=== PATIENT | male | born 1950 | race Caucasian/White ===

== ENCOUNTER → 2019-12-08 | Outpatient (CLI) | payer OTHER | LOC: HYPER 09:37 | DX: L97.812 Non-pressure chronic ulcer of other part of right lower leg with fat layer exposed (principal); S80.11XA Contusion of right lower leg, initial encounter; L84 Corns and callosities; I87.2 Venous insufficiency (chronic) (peripheral); I48.20 Chronic atrial fibrillation, unspecified; I10 Essential (primary) hypertension; R60.0 Localized edema; G89.29 Other chronic pain; J44.9 Chronic obstructive pulmonary disease, unspecified; K21.9 Gastro-esophageal reflux disease without esophagitis; Q85.00 Neurofibromatosis, unspecified; F32.9 Major depressive disorder, single episode, unspecified; F41.9 Anxiety disorder, unspecified; F10.10 Alcohol abuse, uncomplicated; Z79.01 Long term (current) use of anticoagulants; Z87.891 Personal history of nicotine dependence; Z93.3 Colostomy status; Z86.711 Personal history of pulmonary embolism; X58.XXXA Exposure to other specified factors, initial encounter; Y93.89 Activity, other specified; Y92.89 Other specified places as the place of occurrence of the external cause; Y99.8 Other external cause status ==

== ENCOUNTER 2019-12-15 14:06 | Inpatient (IN) | payer OTHER ==
[~2019-12-15] VITALS: Ht 182.9 cm; Wt 74.3 kg
[2019-12-15 14:18] VITALS: BP 134/76
[2019-12-15] MEDS ORDERED: TRAMADOL 50 MG50 MG PO (14:37)
[2019-12-15] MEDS ORDERED: DOXYCYCLINE HY100 M3 PO (14:37)
[2019-12-15] MEDS ORDERED: WARFARIN SODIUM5 MG PO (14:37)
[2019-12-15] MEDS ORDERED: SSD CREAM 1% 5050 GM TOP (14:37)
[2019-12-15] MEDS ORDERED: NEURONTIN 300300 M1 PO (14:37)
[2019-12-15] MEDS ORDERED: DILT-XR240 M1 PO (14:37)
[2019-12-15] MEDS ORDERED: PANTOPRAZOLE SO40 M1 PO (14:37)
[2019-12-15] MEDS ORDERED: WARFARIN SODIU2.5 MG PO (14:38)
[2019-12-15 14:44] LABS: HEMATOCRIT 27.3 % (42.0-52.0); MCH 30.8 pg (26.0-34.0); MCHC 32.8 g/dL (28.0-37.0); MCV 93.9 fL (80.0-100.0); PLATELET COUNT 427 thou/uL (150-400); RBC 2.91 mil/uL (4.50-6.00); RDW 15.2 % (10.5-14.5); WBC 9.7 thou/uL (4.0-11.0)
[2019-12-15 14:47] LABS: CALCIUM 9.3 mg/dL (8.5-10.1); CREATININE 1.1 mg/dL (0.7-1.3); POTASSIUM 4.1 mmol/L (3.5-5.1)
[2019-12-15 14:53] LABS: ALBUMIN 3.4 g/dL (3.4-5.0); TOTAL PROTEIN 7.5 g/dL (6.4-8.2)
[2019-12-15 15:13] LABS: ABSOLUTE NEUTROPHILS 7.3 thou/uL (1.4-8.2)
[2019-12-15 16:07] VITALS: BP 143/76
[2019-12-15 16:18] LABS: INR 3.9; PROTIME 39.8 Seconds (9.3-11.4)
[2019-12-15 16:19] LABS: % SATURATION 12 % (20-39); IRON 39 ug/dL (65-175); TIBC 326 ug/dL (250-450)
[2019-12-15 16:28] VITALS: BP 137/74
[2019-12-15 16:46] LABS: FOLIC ACID 7.6 ng/mL (8.6-58.9); TSH 4.411 uIU/mL (0.358-3.740)
[2019-12-15 19:57] VITALS: BP 119/59
[2019-12-16] VITALS (7 sets, daily range): BP systolic 18–133; BP diastolic 68–95
[2019-12-16 01:04] LABS: URINE BILIRUBIN NEGATIVE (Negative); URINE BLOOD NEGATIVE (Negative); URINE CLARITY CLEAR; URINE COLOR YELLOW; URINE GLUCOSE-RANDOM* NEGATIVE (Negative); URINE KETONES NEGATIVE (Negative); URINE LEUKOCYTES-REFLEX TRACE (Negative); URINE NITRITE-REFLEX NEGATIVE (Negative); URINE PROTEIN (DIPSTICK) NEGATIVE (Negative); URINE SPECIFIC GRAVITY >= 1.030 (1.005-1.035)
--- NOTE | 2019-12-16 04:48 | NUR ---
ASSUMED PT CARE AT 1900. PT IS ALERT AND ORIENTED WITH NO SIGN OF DISTRESS NOTED. CIWA PROTOCOL IN PLACE. PT IS STABLE WITH NO SIGN OF WITHDRWAL NOTICED. PAIN VERBALIZED. PAIN MED ADMINISTERED PER REQUEST. FALL PRECAUTION IN PLACE. ASSESSMENT COMPLETED AND DOCUMENTED. VITAL SIGNS STABLE. SCHEDULED MEDS ADMINISTERED TO PT. TOLERATED PO INTAKE. CONTINUE TO MONITOR PT. DENIES ANY FURTHER NEEDS AT THIS TIME.
[2019-12-16 05:40] LABS: INR 3.5; PROTIME 35.5 Seconds (9.3-11.4)
[2019-12-16 05:49] LABS: HEMATOCRIT 24.4 % (42.0-52.0); HEMOGLOBIN 8.1 gm/dL (14.0-18.0); MCH 31.7 pg (26.0-34.0); MCHC 33.4 g/dL (28.0-37.0); PLATELET COUNT 373 thou/uL (150-400); RBC 2.57 mil/uL (4.50-6.00); RDW 15.5 % (10.5-14.5); WBC 7.8 thou/uL (4.0-11.0)
[2019-12-16 05:55] LABS: MAGNESIUM 1.9 mg/dL (1.8-2.4); POTASSIUM 4.1 mmol/L (3.5-5.1)
[2019-12-16 09:23] LABS: ABSOLUTE NEUTROPHILS 5.7 thou/uL (1.4-8.2); PLATELET ESTIMATE NORMAL
--- NOTE | 2019-12-16 12:47 | NUR ---
Patient admits with cellulitis of arm post fall. Sp with patient over the phone. Patient is retired. He lives with in 2 story home. His PCP is Dr Johnnie Rodriguez. He uses a cane at times for ambulation. He reports his fall due to taking a new medication and ETOH at the same time. patient reports he abuses ETOH and has gone to AA meetings in past. He is agreeable to resource info in his ia instructions. He reports he is sleepy and wanting to take a nap. Plan home independently at ia.
--- NOTE | 2019-12-16 16:37 | NUR ---
ASSUMED CARE PT SHIFT CHANGE. ASSESSMENTS CHARTED. MEDS GIVEN PER NOV. PT ALERT AND ORIENTED.VSS. UP X1 ASSIST TOLERATING WELL. PT C/O PAIN IN LEFT UPPER EXTREMITY- MANAGED WITH PO PAIN MEDS. WOUND DRESSED LEFT ARM. SEEN BY WOUND CARE. PT WORKED WITH PHYS THERAPY TOLERATING WELL. CIWA ASSESSED Q4, PT SCORING 3-4. PT CURRENTLY RESING IN BED WITH NO NEEDS IDENTIFIED. WILL CONTINUE TO MONITOR AND FOLLOW POC.
[2019-12-17] VITALS (13 sets, daily range): BP systolic 112–147; BP diastolic 69–100
--- NOTE | 2019-12-17 04:24 | NUR ---
ASSUMED PT CARE AT 1900. PT IS ALERT AND ORIENTED WITH NO SIGN OF DISTRESS NOTED IN PT. ASSESSMENT COMPLETED AND DOCUMETED, FALL PRECAUTION IN PLACE. PT IS NPO AFTER MIDNIGHT FOR SCHEDULED I&D. VITAL SIGNS STABLE. PAIN MED ADMINISTERED UPON REQUEST. DENIES ANY FURTHER NEEDS AT THIS TIME.
[2019-12-17 06:02] LABS: HEMOGLOBIN 8.5 gm/dL (14.0-18.0); MCH 31.4 pg (26.0-34.0); MCHC 32.8 g/dL (28.0-37.0); MCV 95.7 fL (80.0-100.0); RBC 2.72 mil/uL (4.50-6.00); RDW 16.2 % (10.5-14.5); WBC 8.1 thou/uL (4.0-11.0)
[2019-12-17 06:03] LABS: INR 1.3; PROTIME 13.1 Seconds (9.3-11.4)
[2019-12-17 06:14] LABS: ALBUMIN 2.9 g/dL (3.4-5.0); CALCIUM 8.5 mg/dL (8.5-10.1); CREATININE 0.9 mg/dL (0.7-1.3); MAGNESIUM 1.8 mg/dL (1.8-2.4); POTASSIUM 3.9 mmol/L (3.5-5.1); TOTAL BILIRUBIN 0.9 mg/dL (<0.1-1.0); TOTAL PROTEIN 6.8 g/dL (6.4-8.2)
--- NOTE | 2019-12-17 13:53 | NUR ---
phys reports patient with need for placement/rehab prior to home. Sp with patient who reports he wants to dc home. He is able to care for himself his and his cat. Discussed HH care and patient declines need at this time. he wants to dc home with no needs.
--- NOTE | 2019-12-17 17:07 | NUR ---
ASSUMED PT CARE AT APPROXIMATELY 0700. PT A&O X4. ASSESSMENT CHARTED. FALL PRECAUTIONS IN PLACE. PT DENIES HAVING CHEST PAIN. PT STATED HE HAS SOB ON EXERTION. O2 SAT STABLE. PT STATED HE HAD PAIN IN HIS L ARM. PT RECEIVED ANAGLESICS. PT STATED ANALGESICS HELPED RELIEVE PAIN. PT HAD IND PROCEDURE. PT LEFT FLOOR AROUND APPROXIMATELY 0730. PT RETURNED TO FLOOR APPROXIMATELY 1000. THIS CAUSED INITIAL ASSESSMENT TO BE COMPLETED AT 1000. PT L ARM DRESSING C/D/I. HEMOVAC IN PLACE. NEURO ASSESSMENTS STABLE. VITAL SIGNS STABLE. SEE WOUND INCISION ASSESSMENT. EDUCATED PT ABOUT POC. PT STATED UNDERSTANDING AND DENIED HAVING FURTHER QUESTIONS. PT COMFORTABLE. PT DENIES HAVING FURTHER CONCERNS.
[2019-12-18 03:45] VITALS: BP 124/83
--- NOTE | 2019-12-18 04:46 | NUR ---
ASSUMED PT CARE AT 1900. PT IS ALERT AND ORIENTED WITH NO SIGN OF DISTRESS NOTEED. HEMOVAC PRESENT IN LEFT ARM. PAIN ADEQUATELY MANAGED. ASSESSMENT COMPLETED AND DOCUMENTED. FALL PRECAUTION IN PLACE. CALL LIGHT WITHIN REACH, VITAL SIGNS STABLE. SCHEDULED MEDS ADMINISTERED TO PT. CONTINUE TO MONITOR PT. DENIES ANY FURTHER NEEDS AT THIS TIME.
[2019-12-18 05:35] LABS: PROTIME 10.5 Seconds (9.3-11.4)
[2019-12-18 07:00] VITALS: BP 111/67
[2019-12-18 10:41] LABS: HEMATOCRIT 22.2 % (42.0-52.0); HEMOGLOBIN 7.4 gm/dL (14.0-18.0); MCH 31.6 pg (26.0-34.0); MCHC 33.2 g/dL (28.0-37.0); RBC 2.34 mil/uL (4.50-6.00); RDW 15.9 % (10.5-14.5); WBC 10.2 thou/uL (4.0-11.0)
--- NOTE | 2019-12-18 13:41 | NUR ---
[facility]POKE WITH VIVEK IN INTAKE SHE RECEIVED REFERRAL AND WILL ACCEPT AT [facility].
[2019-12-18 16:00] VITALS: BP 140/85
--- NOTE | 2019-12-18 16:03 | NUR ---
ASSUMED CARE PT SHIFT CHANGE. ASSESSMENT CHARTED.MEDS GIVEN PER NOV. PT ALERT AND ORIENTED. VSS. C/O PAIN IN LEFT EXTREMITY- MANAGED WITH PO PAIN MEDS. O2 SATS WNL ON 4-5L O2. HEMOVAC CONNECTED TO LEFT ARM DRAINING APPROPRIATELY. DRESSING CHANGED BY SURGEON THIS SHIFT. APPETITE ADEQUATE, PT UP WITH PHYS THERAPY TOLERATING WELL. PT CURRENTLY RESTING IN BED DENYING OF NEEDS. WILL CONT TO MONITOR AND FOLLOW POC.
[2019-12-18 19:49] VITALS: BP 118/72
[2019-12-19 03:49] VITALS: BP 133/88
--- NOTE | 2019-12-19 04:36 | NUR ---
ASSUMED PT CARE AT 1900. PT IS ALERT AND ORIENTED WITH NO SIGN OF DISTRESS NOTED. LEFT ARM SWOLLEN, HEMOVAC IS IN PLACE. MINIMAL DRAINAGE. FALL PRECAUTION IN PLACE. PAIN MED ADMINISTERED UPON REQUEST. ASSESSMENT COMPLETED AND DOCUMENTED. SCHEDULED MEDS ADMINISTERED TO PT. PT IS STABLE THROUGHOUT THE NIGHT. DENIES ANY FURTHER NEEDS AT TIME.
[2019-12-19 05:21] LABS: HEMATOCRIT 22.4 % (42.0-52.0); HEMOGLOBIN 7.4 gm/dL (14.0-18.0); MCH 31.5 pg (26.0-34.0); MCHC 32.8 g/dL (28.0-37.0); RBC 2.34 mil/uL (4.50-6.00); WBC 11.2 thou/uL (4.0-11.0)
[2019-12-19 05:25] LABS: PROTIME 10.3 Seconds (9.3-11.4)
[2019-12-19 07:58] VITALS: BP 115/71
[2019-12-19 08:20] VITALS: BP 115/71
--- NOTE | 2019-12-19 13:52 | NUR ---
WOUND CONSULT; ROUNDING WITH DR JARA AND NATE RN. THE LOWER EXTREMITY WAS ASESSED AND THE WOUND HAS 30% FIBRINOUS TISSUE IN THE WOUND BED. I DID NOT ASSESS THE LEFT UPPER EXTREMITY. RECOMMENDASTIONS; SEE NOTE
[2019-12-19] MEDS ORDERED: NORCO 7.5-3251 EACH PO (14:06)
[2019-12-19] MEDS ORDERED: ENOXAPARIN60 MG/0.1 SUBQ (14:06)
[2019-12-19] MEDS ORDERED: ANCEF 1GM1 GM/50 M2 IV (14:07)
[2019-12-19] MEDS ORDERED: IPRAT-ALBUT 0.5-3 ML INH (14:10)
--- NOTE | 2019-12-19 15:04 | NUR ---
Pt had been evaluated and accepted for [facility] acute rehab stay. Pt need therapy, wound care and iv atb. Pt is agreeable. notified and she is agreeable but openly expressed ongoing anger at pt's ethol use and concerns about covid 19 and finances. She also notes that the pt has their car here in the lot and she has no transport. She struggles with mobility and had groceries delievered yesterday to the [facility]. She does not want to try and come get the car or car keys which the pt has in his room. Nursing notified. They will let security know his car is in the lot. [facility] can accept later this afternoon. Dc plan is home in 1-2 weeks. Pt may benefit from a mo medicaid application for secondary insurance. given number for [facility] to check on the pt this evening.
--- NOTE | 2019-12-19 15:08 | HC ---
[facility] [place] [address] CONSULTATION Name: LUIS EDUARDO SHAH Room #: 214-P [facility] IN .R.#: [id number] Admission: 12/15/19 Attend Phys: Avtar Marie MD Discharge: Date of : 54 Report #: [id number] THIS REPORT FOR: cc: Johnnie Cabrera MD, Douglas James MD Althoff, Jeffrey R. MD ~ CC: Avtar Thurston DATE OF SERVICE: 12/16/2019 CHIEF COMPLAINT: Ulceration of right lower extremity and contusion to the left arm. HISTORY OF PRESENT ILLNESS: This is a 69-year-old male patient who presented to the wound clinic after having fallen on his left upper extremity. He takes Coumadin and has been anticoagulated. He had previously been seen at the Emergency Department at [facility]. Due to the large hematoma and cellulitis, he was admitted to the hospital. I have been asked to see him with regard to wound care. The patient noted significant pain involving his left upper extremity. PAST MEDICAL HISTORY: Positive for history of alcoholism, hypertension, DVT, pulmonary embolus, anticoagulated, on Coumadin. He has an IVC filter in place. SOCIAL HISTORY: Previous smoker, daily alcohol use, approximately 1 pint of distilled spirits daily. MEDICATIONS: Include Coumadin, tramadol, Silvadene, pantoprazole, doxycycline, gabapentin, diltiazem. ALLERGIES: No known drug allergies. FAMILY HISTORY: Noncontributory. REVIEW OF SYSTEMS: CONSTITUTIONAL: The patient denies fever, chills, or weight loss. NEUROLOGICAL: The patient denies focal weakness, numbness or tingling. EYES: The patient denies visual changes, redness, or drainage. ENT: The patient denies earache, nasal drainage, sore throat. CARDIOVASCULAR: The patient denies chest pain, palpitations or diaphoresis. PULMONARY: The patient denies cough or shortness of breath. GASTROINTESTINAL: The patient denies nausea, vomiting, diarrhea. ORTHOPEDIC: The patient complains of significant pain and swelling of his left [facility] [address] [place] [address] CONSULTATION Name: LAURAKENANLUIS EDUARDO Lili Room #: 214-P [facility] IN [facility].#: [id number] Admission: 12/15/19 Attend Phys: Avtar Marie MD Discharge: Date of : 54 Report #: [id number] upper extremity, also notes ulceration on the right lower leg. Other systems in a 14-point review of systems are negative. PHYSICAL EXAMINATION: VITAL SIGNS: At this time include temperature 36.7, pulse 87, respiratory rate 16, blood pressure 131/73. GENERAL: This is a chronically ill-appearing male patient who appears to be in mild discomfort. HEENT: Head normocephalic. Nose and throat are clear. NECK: Supple. LUNGS: Clear. HEART: Somewhat irregular without murmur. ABDOMEN: Soft. Bowel sounds present. EXTREMITIES: Demonstrate venous ulceration on the right lower extremity with some surrounding venous dermatitis. There is a large hematoma involving the left upper extremity with some skin necrosis involving the forearm area. It is warm and tender to palpation consistent with a large hematoma. NEUROLOGIC: The patient is alert. He is a little bit tremulous. Moving all 4 extremities spontaneously. LABORATORY STUDIES: Sodium 131, potassium 4.1, chloride 98, CO2 of 24, BUN 18, creatinine 1.0, glucose 93. INR is 3.5. White blood cell count 7.8 with hemoglobin of 8.1. Ultrasound of the left upper extremity is negative for DVT. CLINICAL IMPRESSION: 1. Fall with contusion of the left forearm and large hematoma with developing skin necrosis. 2. Multiple falls. 3. Venous ulcer of the right lower extremity. 4. Hypertension. 5. History of alcohol use. 6. Chronic obstructive pulmonary disease, history of deep vein thrombosis, pulmonary embolus, status post inferior vena cava filter placement and removal, anticoagulated with Coumadin. PLAN AND RECOMMENDATIONS: At this point in time, we will recommend a surgical consultation. I have contacted Dr. Abdoulaye Campbell who has come to see him at the bedside who will plan for surgical debridement and evacuation of hematoma in the morning. We will recommend gentle compression of the legs. We will need to monitor him for alcohol withdrawal. He will need aggressive nutritional support as well as normalization of his INR so in order to undergo surgical intervention. I appreciate being asked to see the patient in consultation. <ELECTRONICALLY SIGNED> By: Saul Balderas MD 12/19/19 1508 [id number] Saul Balderas MD /nt
[2019-12-19 16:21] VITALS: BP 115/77
--- NOTE | 2019-12-19 16:45 | NUR ---
MARLON, METAL SPRAYER, PROVIDED EDUCATION TO THE PATIENT RE: ANTICIPATED DISCHARGE TO [facility] THIS DATE, WELL REHAB SCHEDULE, WHAT TO EXPECT AND ITEMS TO BRING. THE PATIENT STATED THE INFORMATION WAS UNDERSTOOD AND WAS AGREEABLE. A REHAB BROCURE WAS LEFT WITH HIM.
== END 2019-12-19 17:04 | DRG 579 ==
LOC: ER 14:06 → 2N 16:21
PROVIDERS: Hospitalist; Nurse Practitioner; Nurse Practitioner Family; Surgery; ADMIT Hospitalist; ATTEND Hospitalist
PROC: 2W3DX1Z Immobilization of Left Lower Arm using Splint (ICD-10-PCS; 2019-12-15)
PROC: 0J9H0ZZ Drainage of Left Lower Arm Subcutaneous Tissue and Fascia, Open Approach (ICD-10-PCS; principal; 2019-12-17)
DX: L03.114 Cellulitis of left upper limb (principal); E43 Unspecified severe protein-calorie malnutrition; L97.919 Non-pressure chronic ulcer of unspecified part of right lower leg with unspecified severity; D68.9 Coagulation defect, unspecified; S50.12XA Contusion of left forearm, initial encounter; F10.20 Alcohol dependence, uncomplicated; I10 Essential (primary) hypertension; I87.8 Other specified disorders of veins; D64.9 Anemia, unspecified; J44.9 Chronic obstructive pulmonary disease, unspecified; G62.9 Polyneuropathy, unspecified; G47.00 Insomnia, unspecified; K21.9 Gastro-esophageal reflux disease without esophagitis; K59.00 Constipation, unspecified; Z86.718 Personal history of other venous thrombosis and embolism; Z86.711 Personal history of pulmonary embolism; Z87.891 Personal history of nicotine dependence; Z95.828 Presence of other vascular implants and grafts; W18.39XA Other fall on same level, initial encounter; Y93.89 Activity, other specified; Y92.89 Other specified places as the place of occurrence of the external cause; Y99.8 Other external cause status
CPT/HCPCS: 10081; 50010; 50101; 50386; 50445; 57091; 62110; 62900; 70005

== ENCOUNTER → 2019-12-15 | Outpatient (CLI) | payer OTHER ==
[~2019-12-15] MED LIST: DILT-XR240 M1 PO; DOXYCYCLINE HY100 M3 PO; NEURONTIN 300300 M1 PO; PANTOPRAZOLE SO40 M1 PO; SSD CREAM 1% 5050 GM TOP; TRAMADOL 50 MG50 MG PO; WARFARIN SODIU2.5 MG PO; WARFARIN SODIUM5 MG PO
== END ==
LOC: HYPER 12:24
DX: L97.812 Non-pressure chronic ulcer of other part of right lower leg with fat layer exposed (principal); S80.11XA Contusion of right lower leg, initial encounter; S51.802A Unspecified open wound of left forearm, initial encounter; I87.2 Venous insufficiency (chronic) (peripheral); I10 Essential (primary) hypertension; I48.20 Chronic atrial fibrillation, unspecified; R60.0 Localized edema; G89.29 Other chronic pain; Q85.00 Neurofibromatosis, unspecified; J44.9 Chronic obstructive pulmonary disease, unspecified; K21.9 Gastro-esophageal reflux disease without esophagitis; F32.9 Major depressive disorder, single episode, unspecified; F41.9 Anxiety disorder, unspecified; F10.10 Alcohol abuse, uncomplicated; Z79.01 Long term (current) use of anticoagulants; Z87.891 Personal history of nicotine dependence; Z86.711 Personal history of pulmonary embolism; X58.XXXA Exposure to other specified factors, initial encounter; Y93.89 Activity, other specified; Y92.89 Other specified places as the place of occurrence of the external cause; Y99.8 Other external cause status

== ENCOUNTER 2019-12-19 15:03 | Inpatient (IN) | payer OTHER ==
[~2019-12-19] VITALS: Ht 182.9 cm; Wt 86.0 kg
[~2019-12-19 15:03] MED LIST changes: +ANCEF 1GM1 GM/50 M2 IV; +ENOXAPARIN60 MG/0.1 SUBQ; +IPRAT-ALBUT 0.5-3 ML INH; +NORCO 7.5-3251 EACH PO
--- NOTE | 2019-12-19 17:25 | NUR ---
PT CARE ASSUMED APPROXIMATELY 0700. PT ASSESSMENTS CHARTED. PT MEDICATION CHARTED. LUE WOUND BANDAGED WITH XEROFORM, KERLIX AND JESE WRAP. RLE WOUND BANDAGED WITH AQUACEL, KERLIX AND JESE WRAP. YANETH HAS A HERNAN DRAIN. PT DISCHARGED TO [facility]-509. PT TELE D/C'D. IV REMAINS AT [facility].
[2019-12-19 18:04] VITALS: BP 120/76
--- NOTE | 2019-12-19 18:05 | NUR ---
1715 NEW ADMIT TO ROOM 509. PATIENT IS ALERT AND ORIENTED X4. PATIENT HAS PINROSE DRAIN IN HIS UPPER ARM AND HEMOVAC IN HIS LEFT ARM R/T CELLULITIS. PATIENT HAS S.L. IN HIS RIGHT AC. PATIENT REMAINS ON ABT FOR THE CELLULITIS. PATIENT UP IN BED FOR DINNER. PATIENT HAS GOOD CAP REFILL TO HIS FINGERS ON THE LEFT. PATIENT VOIDS LUNA COLORED URINE PER URINAL. NO BM IN 4 DAYS. PLAN LAXATIVE TRIAL. FALL AND SAFETY PROTOCOLS IN PLACE. NO C/O PAIN AT THIS TIME. WILL GET P.T./ O.T. AND S.T. CARRILLO IN A.M. WILL CONTINUE TO MONITER.
--- NOTE | 2019-12-20 04:14 | NUR ---
NO BM SINCE 12/15/2019 AND TAKING NORCO Q 4 HOURS, DECLINED OFFER OF SUPPOSITORY, BUT TOOK MILK OF MAGNESIA CONCENTRATE PLUS A SENNEKOT TABLET AFTER SENNA EXPLAINED TO HIM. IV ANTIBIOTIC GIVEN, RIGHT LEG DRESSING EXAMINED AND WE WILL TRY TO OBTAIN [employer] FOR NEXT DRESSING CHANGE. LEFT ARM JESE WRAP INTACT WITH MINIMAL SEROSANGUINOUS DRAINAGE TO HEMOVAC. PATIENT VOIDING YELLOW PER URINAL APPROX 100 CC AT A TIME. SCDs
[2019-12-20 04:55] LABS: HEMATOCRIT 24.6 % (42.0-52.0); HEMOGLOBIN 8.1 gm/dL (14.0-18.0); MCH 31.6 pg (26.0-34.0); MCV 95.5 fL (80.0-100.0); RBC 2.58 mil/uL (4.50-6.00); RDW 16.2 % (10.5-14.5); WBC 10.4 thou/uL (4.0-11.0)
[2019-12-20 05:01] LABS: CALCIUM 8.7 mg/dL (8.5-10.1); MAGNESIUM 2.3 mg/dL (1.8-2.4); POTASSIUM 4.3 mmol/L (3.5-5.1)
[2019-12-20 08:00] VITALS: BP 103/56
--- NOTE | 2019-12-20 17:08 | NUR ---
ASSUMED CARE AT 0700, PT A&O X 4, NO ACUTE DISTRESS DURING SHIFT. VSS O2 ON 5L VIA NC. PT C/O OF L ARM AND RLE PAIN AND RECEIVED PRN NORCO WITH ADEQUATE RELIEF. PT PARTICIPATED IN MARLYS THERAPIES, IV TO RH RECEIVING ABX. CONTINENT OF B&B USES URINAL. BED IN LOWEST POSITION, CALL LIGHT WITHIN REACH, WILL CONTINUE TO MONITOR PER POC.
[2019-12-20 19:10] VITALS: BP 110/69
--- NOTE | 2019-12-21 00:37 | NUR ---
TOOK OVER PT CARE AT 1900. ASSESSMENT DONE AND VSS. ORAL AND IV MEDS GIVEN AND WELL TOLERATED. FALL PRECAUTIONS IN PLACE. SLEEPING ON/OFF OVERNIGHT. HOURLY ROUNDING. CALL LIGHT IN REACH. WILL CONTINUE TO MONITOR.
[2019-12-21 06:53] LABS: HEMOGLOBIN 8.1 gm/dL (14.0-18.0); MCH 32.1 pg (26.0-34.0); MCHC 33.6 g/dL (28.0-37.0); MCV 95.4 fL (80.0-100.0); RBC 2.51 mil/uL (4.50-6.00); RDW 16.2 % (10.5-14.5); WBC 10.2 thou/uL (4.0-11.0)
[2019-12-21 08:00] VITALS: BP 127/86
--- NOTE | 2019-12-21 16:00 | NUR ---
ASSUMED CARE AT 0700, PT A&O X 4, NO ACUTE DISTRESS DURING SHIFT. VSS, O2 ON 5L VIA NC. PT PAIN CONTROLLED WITH PRN NORCO. PT ALSO GIVEN COLACE AND SENNA FOR CONSTIPATION, DID NOT WANT SUPPOSITORY. NO BM TODAY, LAS KNOWN WAS 12/15/19. PT USES URINAL. IV TO RH FLUSHES WELL, ON ABX Q8H. RESTING IN BED, CALL LIGHT WITHIN REACH, WILL CONTINUE TO MONITOR PER POC.
[2019-12-21 19:02] VITALS: BP 100/65
--- NOTE | 2019-12-22 02:19 | NUR ---
DECLINED OFFER OF CONCENTRATED MILK OF MAGNESIA, TOOK SENNEKOT AND FELT NEED FOR BM APPROX ONE HOUR LATER. UP TO TOILET WITH CANE, GAIT BELT, AND STANDBY ASSIST, SAT ON STOOL FOR APPROX 20 MINUTES TO HAVE LARGE FORMED BROWN STOOL. SALINE LOCK IN RIGHT HAND FOR INTERMITTENT IV ANTIBIOTIC. DRESSING TO RIGHT LEG INTACT. DRESSING TO LEFT UPPER ARM INTACT WITH HEMOVAC DRAIN HAVING NO MEASUREABLE DRAINAGE
[2019-12-22 07:15] VITALS: BP 131/80
[2019-12-22 08:00] VITALS: BP 131/80
--- NOTE | 2019-12-22 09:52 | NUR ---
ASSUMED CARE AT 0700, PT A&O X 4, ABLE TO VOICE HIS NEEDS. VSS, O2 ON 4L VIA NC. PT PAIN CONTROLLED WITH PRN NORCO. RATES PAIN 02/17 HAD PRN NORCO AT 0600. PT ASKED PRN COLACE AND SENNA FOR CONSTIPATION YESTERDAY PRIOR BM WAS 12/15/19. HAD LARGE BM LAST NIGHT PER NIGHT RN. DISCUSSED WITH AGUSTÍN THIS AM THAT PT HAS HARD TIME TO SLEEP AND HAS HX OF CONSTIPATION. PT TALKED TO PT. NO NEW ORDER AT THIS MOMENT. ENCOURAGED PT TO ASK FOR PRN LAXATIVE NEED AND LET AGUSTÍN KNOWS IF HE NEEDS HELP WITH SLEEPING AID. PT USES URINAL. HAS 300CC YELLOW URINE THIS AM. ATE 100% BREAKFAST. UP WITH CGA WITH FWW. IV TO RH FLUSHES WELL, ON CEFAZOLIN ABX IV Q8H FOR CELLULITIS. DRESSING ON LEFT ARM AND RIGHT LEG C/D/I. HERNAN INTACT AND DRAINAGE. WILL CONTINUE TO MONITOR. OFFERED SUPPORTIVE CARE. ENCOURAGED PT TO VOICE HIS NEEDS. PT REFUSES TO WEAR SCD, HAS LOVENOX INJECTION BID. FALL PRECAUTION IN PLACE. RESTING IN BED AT THIS MOMENT WHILE WAITING FOR HIS THERAPY. CALL LIGHT WITHIN REACH, WILL CONTINUE TO MONITOR PER POC.
--- NOTE | 2019-12-22 12:09 | NUR ---
Nutrition: Folate 7.6. with hx daily ETOH use. Prior and thiamine supplementation on acute. REC order appropriate vitamin/mineral supplements.
--- NOTE | 2019-12-22 14:36 | NUR ---
chart review. cm tried calling pt christine- no answer. cm called pt in room via phone call. noted pt is [place], cm had to repeat ever question and he only reported " good the sooner the better to go home"/kody. noted per chart pt lives with , in 2 story house, 12 steps inside. has a cane. he been to aa in the past and reported per chart, pt was drinking and taking his medication and that's how he fell. will cont following as needed for dc needs.
[2019-12-22 19:27] VITALS: BP 114/71
--- NOTE | 2019-12-23 01:43 | NUR ---
PT ALERT AND ORIENTED X 4, IRRITABLE AT TIMES. LEFT ARM DRESSING C/D/I. HERNAN DRAIN INTACT WITH SMALL AMT SEROSANGUINOUS DRAINAGE. PT C/O PAIN IN HIS LEFT ARM AND RIGHT LEG. HYDROCODONE GIVEN AT HS AND PT SLEEPING UPON REASSESSMENT. BED ALARM ON FOR SAFETY. PT APPEARS TO BE SLEEPING ON HOURLY ROUNDS.
[2019-12-23 08:00] VITALS: BP 113/81
--- NOTE | 2019-12-23 10:58 | NUR ---
ASSUMED CARE AT 0700. PATIENT IS ALERT AND ORIENTED X4. PATIENT HAS FLAT AFFECT. PATIENT VALDES'S, CAMPUS MONITOR ARE EQUAL. LUNGS ARE CLEAR AND DEMINISHED. PATINET HAS 02 AT 4L PER N/C. PATIENT HAS S.L. IN HIS RIGHT HAND. IV SITE WITHOUT REDNESS OR SWELLING. DR. YANG HERE TO REMOVE THE PINROSE DRAIN. DRESSING CHANGED TO HIS LEFT ARM AND RIGHT LEG. HEMOVAC INTACT. HIS CELLULITIS TO HIS LEFT ARM IS MUCH IMPROVED. FALL AND SAFETY PROTOCOLS IN PLACE. C/O LEFT ARM PAIN. MEDICATED WITH PRN PAIN MED BY NOC NURSE. CONTINUES TO PROGRESS SLOWLY TOWARDS D/C GOALS. WILL CONTINUE TO MONITER.
--- NOTE | 2019-12-23 13:24 | NUR ---
FAXED FACE SHEET TO NIKKI AT [facility] TO HELP WITH MEDICAID APPLICATION.
--- NOTE | 2019-12-23 14:21 | NUR ---
team meeting, recommendation: cont on IV abx until hemovac in place. working on cooking task with ot. 17th if iv abx completed. follow up with neuropysch outpt [phone]. no driving until he is cleared for pt to drive from his primary MD, hh ( pt, ot, nursing, sw). vendor form and hh list for bedside nurse to give pt and place on pt chart. pt already has home oxygen. pt follow up with aa outpt aa # [phone] or first call [phone]. pt will need transport cab ride home.
[2019-12-23 14:52] VITALS: BP 113/81
[2019-12-23 19:38] VITALS: BP 122/68
--- NOTE | 2019-12-23 23:23 | NUR ---
TOOK OVER PT CARE AT 1900. ASSESSMENT DONE AND VSS. MEDS GIVEN AND WELL TOLERATED. FALL PRECAUTIONS IN PLACE. SLEEPING ON/OFF. HOURLY ROUNDING. CALL LIGHT IN REACH. WILL CONTINUE TO MONITOR.
[2019-12-24 08:00] VITALS: BP 138/76
--- NOTE | 2019-12-24 12:19 | H ---
[facility] [place] [address] HISTORY AND PHYSICAL Name: LUIS EDUARDO SHAH Room #: 509-P ADM IN M.R.#: [id number] Admission: 12/19/19 Attend Phys: Marco Youngblood MD Discharge: Date of : 54 Report #: [id number] THIS REPORT FOR: cc: Johnnie Cabrera MD,Johnnie Youngblood,Marco Main MD ~ CC: Marco Cabrera DATE OF SERVICE: 12/19/2019 POSTADMISSION PHYSICIAN EVALUATION/HISTORY AND PHYSICAL HISTORY OF PRESENT ILLNESS: This is a 69-year-old male who has been admitted for acute in-hospital inpatient rehabilitation. The patient was originally admitted to [facility] on 12/15/2019 after having a fall at home with the left upper extremity wound, which has been worsening. He was found to have cellulitis and severe hematoma. He underwent surgical evacuation of the hematoma with Hemovac drain placement on 12/17/2019. He was placed on IV antibiotics, followed by ID wound care team hospitalist and surgery. He has had a history of falls at home, usually related to balance with his prior history of peripheral neuropathy. He does have a history of ETOH abuse. He does have a prior history of COPD, on 3 liters nasal cannula at home. 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 He has not been admitted for acute in-hospital inpatient rehabilitation. PRIOR MEDICAL HISTORY: As noted above. He does have a history of COPD and has the prior history of ETOH abuse. MEDICATIONS: Please see the MAR. ALLERGIES: No known drug allergies. SOCIAL HISTORY: He lives at home with his . He has a single point cane. He uses at times. He was independent with ADLs and shared IADLs. There is a basement flight of stairs that he reported needing to access. He typically was sleeping on the couch on the main level. REVIEW OF SYSTEMS: No current complaints of chest pain, shortness of breath, abdominal discomfort. PHYSICAL EXAMINATION: GENERAL: The patient was seen earlier today. He was in no distress. VITAL SIGNS: Temperature 97.6, pulse 96, respirations 14, blood pressure 103/56. Sleepy, but did arouse on nasal prong O2, 5 liters. [facility] [address] [place] [address] HISTORY AND PHYSICAL Name: LUIS EDUARDO SHAH Room #: 509-P [facility] IN M.R.#: [id number] Admission: 12/19/19 Attend Phys: Marco Youngblood MD Discharge: Date of : 54 Report #: [id number] HEENT: Facies appeared symmetric. CHEST: Some decreased breath sounds, diffuse to auscultation. CARDIAC EXAM: Sounded regular rate and rhythm. ABDOMEN: Bowel sounds positive, nontender. GENITOURINARY AND RECTAL EXAM: Deferred. EXTREMITIES: His left upper extremity wound is dressed with wrapping throughout the left arm. He also has a wrapping over the right leg. He has a left arm elevated. There is a drain in place. Tone appeared to be intact. Left upper extremity, right upper extremity strength is probably a grade 4- to 3+/5. His lower extremities again, the right leg was wrapped. No focal calf swelling. Bilateral lower extremity edema is trace to 1+. Tone appeared to be intact. Strength is probably a grade 3+/5. He may be more of a 4-/5. He has been needing min assist coming to stand. He has decreased distal sensation consistent with his peripheral neuropathy. ASSESSMENT: 1. 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 2. Medical complexity with generalized debilitation. 3. Gait instability with frequent falls. 4. Left upper extremity cellulitis with hematoma, status post evacuation, 12/17/2019. 5. Chronic obstructive pulmonary disease, premorbidly on O2. 6. ETOH abuse history. 7. Hypertension. 8. Chronic venous stasis. PLAN: The patient has been admitted for acute in-hospital inpatient rehabilitation. From a postadmission physician evaluation perspective, there are no relevant changes since the preadmission screening. Please see the above review of prior and current medical and functional conditions and comorbidities. Please see the patient's previous and current functional status. As far as risk of complications, the patient has multiple medical comorbidities as noted above. Initial plan of care involves the interdisciplinary acute inpatient rehabilitation program. Measurable functional goals would be for the patient to become modified independent with transfers, mobility, ADLs, so that he can hopefully return back to his prior living situation. We will have the multiple senior telecommunications consultant physicians continue to follow up. Prognosis is reasonably good with estimated length of stay probably at least 7-14 days. Potential barriers would include his multiple medical comorbidities and decreased functional status. The patient meets diagnostic criteria for an acute in-hospital inpatient rehabilitation stay. He meets medical necessity criteria and we will have the [facility] [address] [place] [address] HISTORY AND PHYSICAL Name: LUIS EDUARDO SHAH Room #: 500-P ADM IN M.R.#: [id number] Admission: 12/19/19 Attend Phys: Marco Youngblood MD Discharge: Date of : 54 Report #: [id number] senior telecommunications consultant physicians continue to follow. He does have the tolerance for therapies and has appropriate discharge goals back to the home setting. <ELECTRONICALLY SIGNED> By: Marco Youngblood MD 12/24/19 1219 1307 [id number] Marco Youngblood MD /PMT
--- NOTE | 2019-12-24 12:19 | PLAN ---
[facility] [place] [address] REHAB UNIT PLAN OF CARE Name: LUIS EDUARDO SHAH Room #: 509-P ADM IN M.R.#: [id number] Admission: 12/19/19 Attend Phys: Marco Youngblood MD Discharge: Date of : 54 Report #: [id number] THIS REPORT FOR: //name// CC: Marco Cabrera DATE OF SERVICE: 12/22/2019 PROGRESS NOTE/OVERALL PLAN OF CARE HISTORY OF PRESENT ILLNESS: The patient is seen back today in followup. He is in no distress. Last recorded temperature is 98.5, pulse 84, respirations 16, blood pressure 100/65. He is pleasant. Left upper extremity is dressed. Drain is in place. Right lower extremity is dressed as well. He is working in therapies. Transfers are contact guard. He is ambulating 150 feet contact guard with a standard cane. In occupational therapy, lower body dressing is moderate assistance. ASSESSMENT: 1. 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 2. Medical complexity with generalized debilitation. 3. Gait instability with frequent falls. 4. Left upper extremity cellulitis with hematoma, status post evacuation, 12/17/2019. 5. Chronic obstructive pulmonary disease, premorbidly on oxygen. 6. ETOH abuse history. 7. Hypertension. 8. Chronic venous stasis. PLAN: The overall plan of care is based on the preadmission screen, post-admission physician evaluation and information garnered from therapy assessments. 1. Estimated length of stay is probably 7-14 days. 2. Medical prognosis is reasonably good. 3. Anticipated interventions includes the interdisciplinary acute inpatient rehabilitation program. 4. Anticipated functional outcomes would be for the patient to become modified independent with transfers, mobility and ADLs, so he can hopefully return back to his prior living situation. 5. Discharge destination is back to the home setting where he lives with his . 6. Expected therapy by discipline includes PT and OT 1-1/2 hours per day each [address] [address] REHAB UNIT PLAN OF CARE Name: LUIS EDUARDO SHAH Room #: 509-P [facility] IN [facility]#: [id number] Admission: 12/19/19 Attend Phys: Marco Youngblood MD Discharge: Date of : 54 Report #: [id number] five days a week throughout the duration of the acute inpatient rehabilitation stay. <ELECTRONICALLY SIGNED> By: Marco Youngblood MD 12/24/19 1219 [id number] Marco Youngblood MD /[facility]
--- NOTE | 2019-12-24 17:57 | NUR ---
ASSUMED CARE AT 0700, PT A&O X 4, NO ACUTE DISTRESS DURING SHIFT. VSS, O2 ON RA. PT C/O L ARM PAIN RELIEVED WITH PRN NORCO. IV TO RH FLUSHES WELL. WOUND CARE COMPLETED TO RLE PER ORDERS, PICTURES ALSO TAKEN. HEMOVAC REMOVED BY WOUND CARE NURSE WHO ALSO CHANGED DRESSING TO L ARM. PT PARTICIPATED IN MARLYS THERAPIES. RESTING IN BED, CALL LIGHT WITHIN REACH, WILL CONTINUE TO MONITOR PER POC.
[2019-12-24 21:45] VITALS: BP 116/61
--- NOTE | 2019-12-25 00:42 | NUR ---
PT ASSESSMENT COMPLETED AND VSS. MEDS GIVEN ORDERED AND WELL TOLERATED. PRN PAIN MEDICATION WORKING WELL. PT SLEEPING. ROUNDING HOURLY. WHEN PT IS SLEEPING HE PULLS HIS O2 OFF. HAVING TO CHECK AND PLACE 02 BACK ON PT. SAT WNL WITH NC. ASST WITH REPOSITION FOR COMFORT. DSGS ON LEFT ARM AND R LOWER LEG DRY AND INTACT. PT DENIES NEEDS. SLEEPING WELL ON AND OFF. WILL CONTINUE TO MONITOR FREQUENTLY. PT REFUSED TO CHANGE INTO A GOWN AT .
[2019-12-25 07:45] VITALS: BP 111/72
--- NOTE | 2019-12-25 16:00 | NUR ---
cm spoke with christine cardoso via phone call, she stated " don't know who o2 is through, and he never takes oxygen before this. i cant go look, i have laid on floor for 5 days till fire dept was able to be called to help me. had floor on porch, and then had to yelled for help and mail person called 911 for me, i did not have phone. he can drive home with out oxygen he done it before"/christine. referral sent.
--- NOTE | 2019-12-25 16:33 | NUR ---
ASSUMED CARE AT 0700, PT A&O X 4, NO ACUTE DISTRESS DURING SHIFT. VSS, O2 ON 4L VIA NC. PAIN CONTROLLED WITH PRN NORCO. PARTICIPATED IN MARLYS THERAPIES. CONTINENT OF B&B, LARGE BM TODAY, USES URINAL. PLANS FOR D/C FOR TMR. RESTING IN BED, CALL LIGHT WITHIN REACH, WILL CONTINUE TO MONITOR PER POC.
[2019-12-25 21:00] VITALS: BP 135/83
--- NOTE | 2019-12-26 00:27 | NUR ---
TOOK OVER PT CARE AT 1900. PT ASSESSMENT DONE AND VSS. FALL PRECAUTIONS IN PLACE. SLEEPING ON/OFF OVERNIGHT. HOURLY ROUNDING. CALL LIGHT IN REACH. WILL CONTINUE TO MONITOR.
[2019-12-26 05:56] LABS: HEMATOCRIT 26.6 % (42.0-52.0); HEMOGLOBIN 8.6 gm/dL (14.0-18.0); MCH 30.9 pg (26.0-34.0); MCHC 32.2 g/dL (28.0-37.0); PLATELET COUNT 576 thou/uL (150-400); RBC 2.77 mil/uL (4.50-6.00); RDW 16.6 % (10.5-14.5); WBC 6.9 thou/uL (4.0-11.0)
[2019-12-26 06:12] LABS: CALCIUM 8.4 mg/dL (8.5-10.1); CREATININE 0.8 mg/dL (0.7-1.3); MAGNESIUM 2.5 mg/dL (1.8-2.4); POTASSIUM 4.3 mmol/L (3.5-5.1)
[2019-12-26 07:40] VITALS: BP 121/67
[2019-12-26 08:09] LABS: ABSOLUTE NEUTROPHILS 4.6 thou/uL (1.4-8.2); ANISOCYTOSIS SLIGHT; ATYPICAL LYMPHS 1 %; HYPOCHROMASIA SLIGHT; LARGE PLATELETS FEW
[2019-12-26 09:33] VITALS: BP 121/67
[2019-12-26] MEDS ORDERED: NEURONTIN 300300 M1 PO ×2 (09:51→11:19)
[2019-12-26] MEDS ORDERED: IPRAT-ALBUT 0.5-3 ML INH ×2 (09:51→11:19)
[2019-12-26] MEDS ORDERED: VITAMIN B-12500 MCG PO (09:51)
[2019-12-26] MEDS ORDERED: ELIQUIS5 MG PO ×2 (09:51→11:19)
[2019-12-26] MEDS ORDERED: SENNA-TIME S T1 EACH PO (09:51)
[2019-12-26] MEDS ORDERED: FOLIC ACID1 MG PO (09:51)
[2019-12-26] MEDS ORDERED: DILT-XR240 M1 PO (09:51)
[2019-12-26] MEDS ORDERED: KEFLEX500 M1 PO ×2 (09:57→11:19)
[2019-12-26] MEDS ORDERED: NORCO 7.5-3251 EACH PO (10:51)
--- NOTE | 2019-12-26 13:21 | NUR ---
ASSUMED CARE AT 0700,REPORT SLEPT FAIR LAST NIGHT. PT A&O X 4, [place]. IMPULSIVE ABLE TO VOICE HIS OWN NEED. VSS, O2 ON 2L VIA NC. C/O LEFT ARM WOUND PAIN CONTROLLED WITH PRN NORCO. OT ASSISTED PT WITH SHOWER THIS AM. CONTINENT OF B&B, HAD LARGE BM YESTERDAY, USES URINAL. OFFERED SUPPORTIVE CARE. WOUND CARE CHANGED. NOTIFIED WOUND TEAM TO PUT ORDER IN. DISCHARGE SUMMARY AND H&H FAXED TO DR. ZIMMER. REVIEWED DISCHARGE INSTRUCTION WITH PT. RT CAME AND EVALUATED PT AND SAID PT SAT 93% ON RA. SO HE CAN DRIVE HOME WITHOUT OXYGEN. ENCOURAGED PT TO GO HOME AND USE PORTABLE OXYGEN BEFORE HE GOES TO PHARMACY. PT HAS NO FUTHER QUESTION AT THIS MOMENT. DISCHARGE MEDS SENT TO PHARMACY. NORCO PRECRIPTION AND DISCOUNT COUPONS GIVEN TO PT. PT WILL BE DISCHARGE SOON. CALLED AND NOTIFIED.
== END 2019-12-26 13:43 | disposition home health service (06) | DRG 74 ==
PROVIDERS: Hospitalist; Nurse Practitioner; Nurse Practitioner Family; ADMIT Physical Medicine & Rehabilitation
DX: G62.1 Alcoholic polyneuropathy (principal); L03.114 Cellulitis of left upper limb; D68.9 Coagulation defect, unspecified; E46 Unspecified protein-calorie malnutrition; G60.9 Hereditary and idiopathic neuropathy, unspecified; R29.6 Repeated falls; J44.9 Chronic obstructive pulmonary disease, unspecified; I10 Essential (primary) hypertension; S40.022A Contusion of left upper arm, initial encounter; K59.00 Constipation, unspecified; I87.8 Other specified disorders of veins; D64.9 Anemia, unspecified; Z68.25 Body mass index [BMI] 25.0-25.9, adult; Z86.711 Personal history of pulmonary embolism; Z86.718 Personal history of other venous thrombosis and embolism; W18.39XA Other fall on same level, initial encounter; Y93.89 Activity, other specified; Y92.89 Other specified places as the place of occurrence of the external cause; Y99.8 Other external cause status
CPT/HCPCS: 10112

== ENCOUNTER → 2020-01-07 | Outpatient (CLI) | payer OTHER ==
[~2020-01-07] MED LIST changes: +ELIQUIS5 MG PO; +FOLIC ACID1 MG PO; +KEFLEX500 M1 PO; +SENNA-TIME S T1 EACH PO; +VITAMIN B-12500 MCG PO
== END ==
LOC: HYPER 13:57
DX: L97.812 Non-pressure chronic ulcer of other part of right lower leg with fat layer exposed (principal); S80.11XD Contusion of right lower leg, subsequent encounter; S56.5 Injury of other extensor muscle, fascia and tendon at forearm level; L84 Corns and callosities; R60.0 Localized edema; I87.2 Venous insufficiency (chronic) (peripheral); I48.20 Chronic atrial fibrillation, unspecified; I10 Essential (primary) hypertension; G89.29 Other chronic pain; J44.9 Chronic obstructive pulmonary disease, unspecified; Q85.00 Neurofibromatosis, unspecified; K21.9 Gastro-esophageal reflux disease without esophagitis; F32.9 Major depressive disorder, single episode, unspecified; F41.9 Anxiety disorder, unspecified; F10.10 Alcohol abuse, uncomplicated; Z87.891 Personal history of nicotine dependence; Z86.711 Personal history of pulmonary embolism; Z79.01 Long term (current) use of anticoagulants; W19.XXXD Unspecified fall, subsequent encounter

== ENCOUNTER → 2020-02-04 | Outpatient (CLI) | payer OTHER | LOC: HYPER 13:50 | DX: L97.812 Non-pressure chronic ulcer of other part of right lower leg with fat layer exposed (principal); S80.11XD Contusion of right lower leg, subsequent encounter; S56.5 Injury of other extensor muscle, fascia and tendon at forearm level; L84 Corns and callosities; I87.2 Venous insufficiency (chronic) (peripheral); G89.29 Other chronic pain; R60.0 Localized edema; I48.20 Chronic atrial fibrillation, unspecified; I10 Essential (primary) hypertension; J44.9 Chronic obstructive pulmonary disease, unspecified; K21.9 Gastro-esophageal reflux disease without esophagitis; F32.9 Major depressive disorder, single episode, unspecified; F41.9 Anxiety disorder, unspecified; F10.10 Alcohol abuse, uncomplicated; Z79.01 Long term (current) use of anticoagulants; Z87.891 Personal history of nicotine dependence; Z86.711 Personal history of pulmonary embolism; X58.XXXD Exposure to other specified factors, subsequent encounter ==